=== PATIENT | female | born 1945 | race Caucasian/White ===

== ENCOUNTER → 2017-04-07 | Outpatient (CLI) | payer MEDICARE, BC | LOC: FS 10:39 | PROVIDERS: ATTEND Internal Medicine Hematology & Oncology | DX: Z08 Encounter for follow-up examination after completed treatment for malignant neoplasm (principal); Z85.3 Personal history of malignant neoplasm of breast; I10 Essential (primary) hypertension; Z79.899 Other long term (current) drug therapy | CPT/HCPCS: 99213 ==

== ENCOUNTER 2017-08-03 13:53 | Outpatient (RCR) | payer MEDICARE, BC | END 2017-11-01 | disposition home or self-care (01) | LOC: ONC 13:53 | PROVIDERS: ATTEND Internal Medicine Hematology & Oncology | DX: Z08 Encounter for follow-up examination after completed treatment for malignant neoplasm (principal); Z85.3 Personal history of malignant neoplasm of breast; I10 Essential (primary) hypertension; Z79.899 Other long term (current) drug therapy | CPT/HCPCS: 99213 ==

== ENCOUNTER → 2018-04-05 | Outpatient (CLI) | payer MEDICARE, BC | LOC: EDSTATUS 11-02 12:27 → ONC 10:17 | PROVIDERS: ATTEND Internal Medicine Hematology & Oncology | DX: Z08 Encounter for follow-up examination after completed treatment for malignant neoplasm (principal); Z85.3 Personal history of malignant neoplasm of breast; I10 Essential (primary) hypertension; E03.9 Hypothyroidism, unspecified; G47.33 Obstructive sleep apnea (adult) (pediatric); Z15.01 Genetic susceptibility to malignant neoplasm of breast; Z85.40 Personal history of malignant neoplasm of unspecified female genital organ; Z80.3 Family history of malignant neoplasm of breast; Z80.0 Family history of malignant neoplasm of digestive organs; Z79.899 Other long term (current) drug therapy; Z92.21 Personal history of antineoplastic chemotherapy; Z92.3 Personal history of irradiation | CPT/HCPCS: 99213 ==

== ENCOUNTER 2019-03-09 13:14 | Emergency (ER) | payer MEDICARE, BC ==
[~2019-03-09] VITALS: Ht 172.7 cm; Wt 72.1 kg
[2019-03-09] MEDS ORDERED: LEVO112T55 (13:23)
[2019-03-09] MEDS ORDERED: FURO20TA4 (13:23)
[2019-03-09] MEDS ORDERED: LOSA100T57 (13:23)
[2019-03-09] MEDS ORDERED: LOSARTAN (13:23)
[2019-03-09 13:40] VITALS: BP_SYST 102; BP_SYST 105; BP_SYST 113; BP_DIAS 50; BP_DIAS 54
[2019-03-09 13:49] LABS: BASOPHILS % (AUTO) 0 % (0-10); EOSINOPHILS % (AUTO) 0 % (0-10); HEMATOCRIT 41 % (35-52); LYMPHOCYTES # (AUTO) 1.2 X 10^3 (1.0-4.0); LYMPHOCYTES % (AUTO) 8 % (12-44); MEAN CORPUSCULAR HEMOGLOBIN 29 PG (25-34); MEAN CORPUSCULAR HGB CONC 32 G/DL (32-36); MEAN CORPUSCULAR VOLUME 90 FL (80-99); MEAN PLATELET VOLUME 10.1 FL (7.4-10.4); MONOCYTES # (AUTO) 0.8 X 10^3 (0.0-1.0); MONOCYTES % (AUTO) 5 % (0-12); NEUTROPHILS # (AUTO) 13.6 X 10^3 (1.8-7.8); NEUTROPHILS % (AUTO) 86 % (42-75); PLATELET COUNT 327 10^3/uL (130-400); RED CELL DISTRIBUTION WIDTH 14.7 % (10.0-14.5); WHITE BLOOD COUNT 15.8 10^3/uL (4.3-11.0)
[2019-03-09 13:53] LABS: BILIRUBIN,URINE NEGATIVE (NEGATIVE); CLARITY,URINE SLT CLOUDY; COLOR,URINE YELLOW; GLUCOSE, URINE (UA) 1+ (NEGATIVE); KETONES,URINE NEGATIVE (NEGATIVE); LEUKOCYTE ESTERASE ,URINE NEGATIVE (NEGATIVE); NITRITE,URINE NEGATIVE (NEGATIVE); PROTEIN,URINE TRACE (NEGATIVE); UROBILINOGEN,URINE 0.2 MG/DL (NORMAL)
[2019-03-09 14:04] LABS: BILIRUBIN,TOTAL 0.5 MG/DL (0.1-1.0); CALCIUM 9.6 MG/DL (8.5-10.1); CREATININE SERUM 1.27 MG/DL (0.60-1.30); MAGNESIUM 2.3 MG/DL (1.8-2.4); POTASSIUM 4.1 MMOL/L (3.6-5.0)
[2019-03-09 14:05] LABS: ALBUMIN 4.2 GM/DL (3.2-4.5); TOTAL PROTEIN 7.4 GM/DL (6.4-8.2)
[2019-03-09 14:17] LABS: BAND NEUTROPHILS 2 %; BASOPHILS % (MANUAL) 0 %; EOSINOPHILS % (MANUAL) 0 %; LYMPHOCYTES % (MANUAL) 11 %; MONOCYTES % (MANUAL) 2 %; NEUTROPHILS % (MANUAL) 85 %
[2019-03-09] MEDS ORDERED: NS IV 1000 ML 1,000 ML ONE (14:26)
[2019-03-09] MEDS ORDERED: NS IV 1000 ML 1,000 ML IV SCH (14:30)
--- NOTE | 2019-03-09 14:43 | ED General ---
General Chief Complaint: Dizziness/Syncope Stated Complaint: NEAR SYNCOPE Nursing Triage Note: Patient brought in via EMS ([facility]) with c/o near syncope. Patient states that she was driving home from [place] when her arms/hand muscles started to tense up and she felt as though she was going to faint. She went to see her PCP in [place] and was sent here to the ED for further evaluation. Patient also reports muscle spasms in her back. Nursing Sepsis Screen: No Definite Risk Source of Information: Patient History of Present Illness Date Seen by Provider: Mar 09, 2019 Time Seen by Provider: 14:37 Initial Comments Patient is a 73-year-old female presents with B hand cramping while driving, accompanied by dizziness and near syncope. Patient was able to kiln puller denies syncopal episodes. Denies chest pain palpitations, headache, blurred vision. Patient states she started a diuretic 3 days ago her blood pressure control. She was seen at her PCPs office and referred to the ED for additional evaluation. Patient symptoms have fully resolved prior to ED arrival. No other acute symptoms or complaints. Timing/Duration: 1-3 Hours Severity: Mild Associated Systoms: Denies Symptoms Allergies and Home Medications Allergies Coded Allergies: No Known Drug Allergies (Unverified , 03/09/19) Patient Home Medication List Home Medication List Reviewed: Yes Review of Systems Review of Systems Constitutional: see HPI Respiratory: see HPI Cardiovascular: see HPI Genitourinary: see HPI Musculoskeletal: see HPI Skin: see HPI Psychiatric/Neurological: See HPI Hematologic/Lymphatic: See HPI Immunological/Allergic: see HPI Past Albetla-Spyfca-Yanose Hx Patient Social History Alcohol Use: Denies Use Recreational Drug Use: No Smoking Status: Never a Smoker 2nd Hand Smoke Exposure: No Recent Foreign Travel: No Contact w/Someone Who Travel: No Recent Infectious Disease Expo: No Recent Hopitalizations: No Physical Abuse: No Sexual Abuse: No Mistreated: No Fear: No Seasonal Allergies Seasonal Allergies: No Past Medical History Surgeries: Yes (L mastectomy) Hysterectomy Respiratory: No Hypertension Neurological: 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 oz. 72.736951rz; BMI Method:Stated General Appearance: No Apparent Distress, WD/WN, Anxious Eyes: Bilateral Eye Normal Inspection, Bilateral Eye PERRL, Bilateral Eye EOMI, Bilateral Eye Abnormal EOM, Bilateral Eye Abnormal Pupil HEENT: PERRL/EOMI, TMs Normal, Pharynx Normal, Moist Mucous Membranes Neck: Full Range of Motion, Normal Inspection, Supple Respiratory: Chest Non Tender, Lungs Clear, Normal Breath Sounds Cardiovascular: Regular Rate, Rhythm Back: Normal Inspection Neurologic/Psychiatric: Alert, Oriented x3, No Motor/Sensory Deficits, pharmacy care coordinator II- XII Norm as Tested Skin: Normal Color Focused Exam Sepsis Stage: Ruled Out Progress/Results/Core Measures Suspected Sepsis Recent Fever Within 48 Hours: No Infection Criteria Present: None New/Unexplained Altered Menta: No Sepsis Screen: No Definite Risk SIRS Temperature:97.6 Pulse: 81 Respiratory Rate: 21 Laboratory Tests 03/09/19 13:25: White Blood Count 15.8H Blood Pressure 121 /61 Mean: 81 Laboratory Tests 03/09/19 13:25: Creatinine 1.27, Platelet Count 327, Total Bilirubin 0.5 Results/Orders Lab Results Laboratory Tests Test 03/09/19 13:25 03/09/19 13:35 Range/Units White Blood Count 15.8 H 4.3-11.0 10^3/uL Red Blood Count 4.49 4.35-5.85 10^6/uL Hemoglobin 13.0 11.5-16.0 G/DL Hematocrit 41 35-52 % Mean Corpuscular Volume 90 80-99 FL Mean Corpuscular Hemoglobin 29 25-34 PG Mean Corpuscular Hemoglobin Concent 32 32-36 G/DL Red Cell Distribution Width 14.7 H 10.0-14.5 % Platelet Count 327 130-400 10^3/uL Mean Platelet Volume 10.1 7.4-10.4 FL Neutrophils (%) (Auto) 86 H 42-75 % Lymphocytes (%) (Auto) 8 L 12-44 % Monocytes (%) (Auto) 5 0-12 % Eosinophils (%) (Auto) 0 0-10 % Basophils (%) (Auto) 0 0-10 % Neutrophils # (Auto) 13.6 H 1.8-7.8 X 10^3 Lymphocytes # (Auto) 1.2 1.0-4.0 X 10^3 Monocytes # (Auto) 0.8 0.0-1.0 X 10^3 Eosinophils # (Auto) 0.0 0.0-0.3 10^3/uL Basophils # (Auto) 0.0 0.0-0.1 10^3/uL Neutrophils % (Manual) 85 % Lymphocytes % (Manual) 11 % Monocytes % (Manual) 2 % Eosinophils % (Manual) 0 % Basophils % (Manual) 0 % Band Neutrophils 2 % Sodium Level 140 135-145 MMOL/L Potassium Level 4.1 3.6-5.0 MMOL/L Chloride Level 99 98-107 MMOL/L Carbon Dioxide Level 28 21-32 MMOL/L Anion Gap 13 5-14 MMOL/L Blood Urea Nitrogen 22 H 7-18 MG/DL Creatinine 1.27 0.60-1.30 MG/DL Estimat Glomerular Filtration Rate 41 BUN/Creatinine Ratio 17 Glucose Level 214 H 70-105 MG/DL Calcium Level 9.6 8.5-10.1 MG/DL Corrected Calcium 9.4 8.5-10.1 MG/DL Magnesium Level 2.3 1.8-2.4 MG/DL Total Bilirubin 0.5 0.1-1.0 MG/DL Aspartate Amino Transf (AST/SGOT) 11 5-34 U/L Alanine Aminotransferase (ALT/SGPT) 11 0-55 U/L Alkaline Phosphatase 91 40-136 U/L Total Protein 7.4 6.4-8.2 GM/DL Albumin 4.2 3.2-4.5 GM/DL Urine Color YELLOW Urine Clarity SLT CLOUDY Urine pH 6.0 5-9 Urine Specific [place] 1.020 1.016-1.022 Urine Protein TRACE NEGATIVE Urine Glucose (UA) 1+ H NEGATIVE Urine Ketones NEGATIVE NEGATIVE Urine Nitrite NEGATIVE NEGATIVE Urine Bilirubin NEGATIVE NEGATIVE Urine Urobilinogen 0.2 NORMAL MG/DL Urine Leukocyte Esterase NEGATIVE NEGATIVE Urine RBC (Auto) TRACE H NEGATIVE My Orders Orders - MARIANNE SIMMONS DO Cbc With Automated Diff (03/09/19 13:16) Comprehensive Metabolic Panel (03/09/19 13:16) Thyroid Stimulating Hormone (7/10/19 13:16) Ekg Tracing (03/09/19 13:16) Urinalysis Dipstick Only (03/09/19 13:16) Orthostatic Vital Signs (Adult (03/09/19 13:16) Magnesium (03/09/19 13:16) Manual Differential (03/09/19 13:25) Ns Iv 1000 Ml (Sodium Chloride 0.9%) (03/09/19 14:30) Vital Signs/I&O 03/09/19 13:14 Temp 97.6 Pulse 81 Resp 21 B/P (MAP) 121/61 (81) Pulse Ox 100 O2 Delivery Room Air Capillary Refill : Less Than 3 Seconds Blood Pressure Mean: 81 Departure Communication (Admissions) Patient noted to have mild leukocytosis. She has recently completed a dose of steroids. No arrhythmia on monitor. Lab work reveals mild dehydration possibly contributing to cramps along with heat. IV fluids given. EKG unremarkable. Patient remains asymptomatic while in the emergency department. Recommend PCP follow-up. Return precautions reviewed. Impression Primary Impression: Dizziness Additional Impressions: Dehydration Near syncope Disposition: 01 HOME, SELF-CARE Condition: Improved Departure-Patient Inst. Referrals: RONAK JAIME MD (PCP/Family) Primary Care Physician Patient Instructions: Dehydration, Adult (DC), Near Fainting (DC) Add. Discharge Instructions: You were evaluated in the emergency department for dizziness, headache cramps and near fainting episode. Although the exact cause your symptoms not been determined, lab work is suggestive dehydration which may have contributed to her symptoms. Please discontinue Lasix until you follow up with your PCP. Return to the ED if new or worsening symptoms. All discharge instructions reviewed with patient and/or family. Voiced understanding. MARIANNE SIMMONS DO Mar 09, 2019 14:42
[2019-03-09 15:10] VITALS: BP 99/46
--- OUTSIDE RECORDS SUMMARY | 2019-03-09 16:40 | XMS REPORT | Continuity of Care Document ---
Demographics x Preferred Language Unknown Marital Status Unknown Episcopal Affiliation Unknown Race Unknown Ethnic Group Unknown Author Organization Unknown Address Unknown Allergies There is no data. Medications There is no data. Problems Date Dx Coded Attending Type Code Diagnosis Diagnosed By 04/18/2015 PAOLO, BOBAN N Ot 401.9 04/18/2015 PAOLO, BOBAN N Ot V10.3 04/18/2015 PAOLO, BOBAN N Ot V58.69 04/18/2015 PAOLO, BOBAN N Ot V67.1 04/18/2015 PAOLO, BOBAN N Ot V67.2 05/01/2015 PAOLO, BOBAN N Ot 401.9 05/01/2015 PAOLO, BOBAN N Ot V10.3 05/01/2015 PAOLO, BOBAN N Ot V58.69 05/01/2015 PAOLO, BOBAN N Ot V67.1 05/01/2015 POALO, BOBAN N Ot V67.2 05/10/2015 PAOLO, BOBAN N Ot 401.9 05/10/2015 PAOLO, BOBAN N Ot V10.3 05/10/2015 PAOLO, BOBAN N Ot V58.69 05/10/2015 PAOLO, BOBAN N Ot V67.1 05/10/2015 PAOLO, BOBAN N Ot V67.2 04/10/2016 PAOLO, BOBAN N Ot I10 ESSENTIAL (PRIMARY) HYPERTENSION 04/10/2016 PAOLO, BOBAN N Ot Z08 ENCNTR FOR FOLLOW-UP EXAM AFTER TRTMT FO 04/10/2016 PAOLO, BOBAN N Ot Z79.899 OTHER RETIREMENT (CURRENT) DRUG THERAPY 04/10/2016 PAOLO, BOBAN N Ot Z85.3 PERSONAL HISTORY OF MALIGNANT NEOPLASM O 04/29/2016 PAOLO, BOBAN N Ot I10 ESSENTIAL (PRIMARY) HYPERTENSION 04/29/2016 PAOLO, BOBAN N Ot Z08 ENCNTR FOR FOLLOW-UP EXAM AFTER TRTMT FO 04/29/2016 PAOLO, BOBAN N Ot 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 04/29/2016 PAOLO, BOBAN N Ot Z85.3 PERSONAL HISTORY OF MALIGNANT NEOPLASM O 05/02/2016 NICK BOONE N Ot I10 ESSENTIAL (PRIMARY) HYPERTENSION 05/02/2016 PAOLO NICK N Ot Z08 ENCNTR FOR FOLLOW-UP EXAM AFTER TRTMT FO 05/02/2016 PAOLO CIARAJIMMY N Ot 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 05/02/2016 PAOLO, NICK N Ot Z85.3 PERSONAL HISTORY OF MALIGNANT NEOPLASM O 04/29/2017 PAOLO, CIARAJIMMY N Ot I10 ESSENTIAL (PRIMARY) HYPERTENSION 04/29/2017 PAOLO NICK N Ot Z08 ENCNTR FOR FOLLOW-UP EXAM AFTER TRTMT FO 04/29/2017 PAOLONICK N Ot 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 04/29/2017 PAOLONICK N Ot Z85.3 PERSONAL HISTORY OF MALIGNANT NEOPLASM O 05/05/2017 PAOLO, NICK N Ot I10 ESSENTIAL (PRIMARY) HYPERTENSION 05/05/2017 NICK BOONE N Ot Z08 ENCNTR FOR FOLLOW-UP EXAM AFTER TRTMT FO 05/05/2017 PAOLONICK N Ot Z79.899 OTHER RETIREMENT (CURRENT) DRUG THERAPY 05/05/2017 PAOLONICK N Ot Z85.3 PERSONAL HISTORY OF MALIGNANT NEOPLASM O 08/04/2017 PAOLO CIARAJIMMY N Ot I10 ESSENTIAL (PRIMARY) HYPERTENSION 08/04/2017 PAOLONICK N Ot Z08 ENCNTR FOR FOLLOW-UP EXAM AFTER TRTMT FO 08/04/2017 NICK BOONE N Ot 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 08/04/2017 PAOLONICK N Ot Z85.3 PERSONAL HISTORY OF MALIGNANT NEOPLASM O 09/22/2017 PAOLO, CIARAAN N Ot I10 ESSENTIAL (PRIMARY) HYPERTENSION 09/22/2017 NIKC BOONE N Ot Z08 ENCNTR FOR FOLLOW-UP EXAM AFTER TRTMT FO 09/22/2017 PAOLONICK N Ot Z79.899 OTHER RETIREMENT (CURRENT) DRUG THERAPY 09/22/2017 PAOLONICK N Ot Z85.3 PERSONAL HISTORY OF MALIGNANT NEOPLASM O 09/30/2017 PAOLO BOBAN N Ot I10 ESSENTIAL (PRIMARY) HYPERTENSION 09/30/2017 PAOLO NICK N Ot Z08 ENCNTR FOR FOLLOW-UP EXAM AFTER TRTMT FO 09/30/2017 PAOLO NICK N Ot Z79.899 OTHER RETIREMENT (CURRENT) DRUG THERAPY 09/30/2017 PAOLO NICK N Ot Z85.3 PERSONAL HISTORY OF MALIGNANT NEOPLASM O 11/01/2017 PAOLO BOBAN N Ot I10 ESSENTIAL (PRIMARY) HYPERTENSION 11/01/2017 PAOLONICK N Ot Z08 ENCNTR FOR FOLLOW-UP EXAM AFTER TRTMT FO 11/01/2017 PAOLO NICK N Ot 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 11/01/2017 PAOLOCIARAAN N Ot Z85.3 PERSONAL HISTORY OF MALIGNANT NEOPLASM O 04/27/2018 PAOLONICK N Ot E03.9 HYPOTHYROIDISM, UNSPECIFIED 04/27/2018 PAOLONICK N Ot G47.33 OBSTRUCTIVE SLEEP APNEA (ADULT) (PEDIATR 04/27/2018 PAOLO BOBAN N Ot I10 ESSENTIAL (PRIMARY) HYPERTENSION 04/27/2018 PAOLONICK N Ot Z08 ENCNTR FOR FOLLOW-UP EXAM AFTER TRTMT FO 04/27/2018 PAOLO NICK N Ot Z15.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 MALIGNANT NEOP 04/27/2018 PAOLONICK N Ot 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 04/27/2018 PAOLONICK N Ot Z80.0 FAMILY HISTORY OF MALIGNANT NEOPLASM OF 04/27/2018 PAOLONICK N Ot Z80.3 FAMILY HISTORY OF MALIGNANT NEOPLASM OF 04/27/2018 NICK BOONE N Ot Z85.3 PERSONAL HISTORY OF MALIGNANT NEOPLASM O 04/27/2018 NICK BOONE N Ot Z85.40 PRSNL HISTORY OF MALIG NEOPLM OF UNSP FE 04/27/2018 NICK BOONE N Ot Z92.21 PERSONAL HISTORY OF ANTINEOPLASTIC CHEMO 04/27/2018 NICK BOONE N Ot Z92.3 PERSONAL HISTORY OF IRRADIATION 05/05/2018 NICK BOONE N Ot E03.9 HYPOTHYROIDISM, UNSPECIFIED 05/05/2018 CIARA BOONEAN N Ot G47.33 OBSTRUCTIVE SLEEP APNEA (ADULT) (PEDIATR 05/05/2018 PAOLO BOBAN N Ot I10 ESSENTIAL (PRIMARY) HYPERTENSION 05/05/2018 NICK BOONE Ot Z08 ENCNTR FOR FOLLOW-UP EXAM AFTER TRTMT FO 05/05/2018 NICK BOONE Ot Z15.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 Results Test Result Range CMP - 03/01/19 11:17 GLUCOSE 91 mg/dL 65-99 UREA NITROGEN (BUN) 16 mg/dL 7-25 CREATININE 0.82 mg/dL 0.60-0.93 eGFR NON-AFR. UKRAINIAN 72 mL/min/1.73m2 > OR=60 eGFR 83 mL/min/1.73m2 > OR=60 BUN/CREATININE RATIO NOT APPLICABLE (calc) 6-22 SODIUM 140 mmol/L 135-146 POTASSIUM 4.5 mmol/L 3.5-5.3 CHLORIDE 105 mmol/L 98-110 CARBON DIOXIDE 26 mmol/L 20-32 CALCIUM 9.5 mg/dL 8.6-10.4 PROTEIN, TOTAL 7.0 g/dL 6.1-8.1 ALBUMIN 4.2 g/dL 3.6-5.1 GLOBULIN 2.8 g/dL (calc) 1.9-3.7 ALBUMIN/GLOBULIN RATIO 1.5 (calc) 1.0-2.5 BILIRUBIN, TOTAL 0.6 mg/dL 0.2-1.2 ALKALINE PHOSPHATASE 91 U/L 33-130 AST 12 U/L 10-35 ALT 10 U/L 6-29 CBC w/MANUAL DIFF - 03/01/19 11:17 WHITE BLOOD CELL COUNT 6.6 Thousand/uL 3.8-10.8 RED BLOOD CELL COUNT 4.19 Million/uL 3.80-5.10 HEMOGLOBIN 12.0 g/dL 11.7-15.5 HEMATOCRIT 37.6 % 35.0-45.0 MCV 89.7 fL 80.0-100.0 MCH 28.6 pg 27.0-33.0 MCHC 31.9 g/dL 32.0-36.0 RDW 13.8 % 11.0-15.0 PLATELET COUNT 260 Thousand/uL 140-400 MPV 11.3 fL 7.5-12.5 ABSOLUTE NEUTROPHILS 4224 cells/uL 1266-5037 ABSOLUTE MONOCYTES 594 cells/uL 200-950 ABSOLUTE EOSINOPHILS 198 cells/uL 15-500 ABSOLUTE BASOPHILS 0 cells/uL 0-200 NEUTROPHILS 64.0 % NRG LYMPHOCYTES 22.0 % NRG MONOCYTES 9.0 % NRG EOSINOPHILS 3.0 % NRG BASOPHILS 0 % NRG ABSOLUTE BAND NEUTROPHILS 132 cells/uL 0-750 ABSOLUTE LYMPHOCYTES 1452 cells/uL 850-3900 BAND NEUTROPHILS 2.0 % NRG PLATELET ESTIMATION ADEQUATE ADEQUATE CBC MORPHOLOGY NORMAL ESR/SED RATE - 03/01/19 11:17 SED RATE BY MODIFIED WESTERGREN 17 mm/h < OR=30 Complete blood count (CBC) with automated white blood cell (WBC) differential - 03/09/19 13:25 Blood leukocytes automated count (number/volume) 15.8 10*3/uL 4.3-11.0 Blood erythrocytes automated count (number/volume) 4.49 10*6/uL 4.35-5.85 Venous blood hemoglobin measurement (mass/volume) 13.0 g/dL 11.5-16.0 Blood hematocrit (volume fraction) 41 % 35-52 Automated erythrocyte mean corpuscular volume 90 [foz_us] 80-99 Automated erythrocyte mean corpuscular hemoglobin (mass per erythrocyte) 29 pg 25-34 Automated erythrocyte mean corpuscular hemoglobin concentration measurement (mass/volume) 32 g/dL 32-36 Automated erythrocyte distribution width ratio 14.7 % 10.0- 14.5 Automated blood platelet count (count/volume) 327 10*3/uL 130-400 Automated blood platelet mean volume measurement 10.1 [foz_us] 7.4-10.4 Automated blood neutrophils/100 leukocytes 86 % 42-75 Automated blood lymphocytes/100 leukocytes 8 % 12-44 Blood monocytes/100 leukocytes 5 % 0-12 Automated blood eosinophils/100 leukocytes 0 % 0-10 Automated blood basophils/100 leukocytes 0 % 0-10 Blood neutrophils automated count (number/volume) 13.6 10*3 1.8-7.8 Blood lymphocytes automated count (number/volume) 1.2 10*3 1.0-4.0 Blood monocytes automated count (number/volume) 0.8 10*3 0.0- 1.0 Automated eosinophil count 0.0 10*3/uL 0.0-0.3 Automated blood basophil count (count/volume) 0.0 10*3/uL 0.0-0.1 Comprehensive metabolic panel - 03/09/19 13:25 Serum or plasma sodium measurement (moles/volume) 140 mmol/L 135-145 Serum or plasma potassium measurement (moles/volume) 4.1 mmol/L 3.6-5.0 Serum or plasma chloride measurement (moles/volume) 99 mmol/L 98-107 Carbon dioxide 28 mmol/L 21-32 Serum or plasma anion gap determination (moles/volume) 13 mmol/L 5-14 Serum or plasma urea nitrogen measurement (mass/volume) 22 mg/dL 7-18 Serum or plasma creatinine measurement (mass/volume) 1.27 mg/dL 0.60-1.30 Serum or plasma urea nitrogen/creatinine mass ratio 17 NRG Serum or plasma creatinine measurement with calculation of estimated glomerular filtration rate 41 NRG Serum or plasma glucose measurement (mass/volume) 214 mg/dL 70-105 Serum or plasma calcium measurement (mass/volume) 9.6 mg/dL 8.5-10.1 Serum or plasma total bilirubin measurement (mass/volume) 0.5 mg/dL 0.1-1.0 Serum or plasma alkaline phosphatase measurement (enzymatic activity/volume) 91 U/L 40-136 Serum or plasma aspartate aminotransferase measurement (enzymatic activity/volume) 11 U/L 5-34 Serum or plasma alanine aminotransferase measurement (enzymatic activity/volume) 11 U/L 0-55 Serum or plasma protein measurement (mass/volume) 7.4 g/dL 6.4-8.2 Serum or plasma albumin measurement (mass/volume) 4.2 g/dL 3.2-4.5 CALCIUM CORRECTED 9.4 mg/dL 8.5-10.1 Magnesium - 03/09/19 13:25 Magnesium 2.3 mg/dL 1.8-2.4 Manual absolute plasma cell count - 03/09/19 13:25 Blood monocytes/100 leukocytes 2 % NRG Manual blood segmented neutrophils/100 leukocytes 85 % NRG Blood band neutrophils/100 leukocytes 2 % NRG Manual blood lymphocytes/100 leukocytes 11 % NRG Manual eosinophils/100 leukocytes in nose 0 % NRG Manual blood basophils/100 leukocytes 0 % NRG Automated dipstick urinalysis - 03/09/19 13:35 Urine color determination YELLOW NRG Urine clarity determination SLT CLOUDY NRG Urine pH measurement by test strip 6.0 5-9 Specific gravity of urine by test strip 1.020 1.016-1.022 Urine protein assay by test strip, semi-quantitative TRACE NEGATIVE Urine glucose detection by automated test strip 1+ NEGATIVE Erythrocytes detection in urine sediment by light microscopy TRACE NEGATIVE Urine ketones detection by automated test strip NEGATIVE NEGATIVE Urine nitrite detection by test strip NEGATIVE NEGATIVE Urine total bilirubin detection by test strip NEGATIVE NEGATIVE Urine urobilinogen measurement by automated test strip (mass/volume) 0.2 mg/dL NORMAL Urine leukocyte esterase detection by dipstick NEGATIVE NEGATIVE Encounters ACCT No. Visit Date/Time Discharge Status Pt. Type Provider Facility Loc./Unit Complaint [id number] 03/01/2019 11:00:00 03/01/2019 23:59:59 CLS Outpatient [facility] [id number] 03/01/2019 11:00:00 Document Registration [id number] 11/02/2017 00:13:00 11/02/2017 23:59:59 CLS Outpatient PAOLO NICK Jesus [facility] ONC [id number] 08/03/2017 13:53:00 11/01/2017 00:01:00 DIS Outpatient PAOLO CIARAJIMMY Lee [facility] ONC [id number] 04/07/2017 10:39:00 04/07/2017 23:59:59 CLS Outpatient PAOLONICK MICHELLE [facility] FS [id number] 04/08/2016 11:27:00 04/08/2016 23:59:59 CLS Outpatient PAOLONICK MICHELLE [facility] FS [id number] 04/10/2015 10:20:00 04/10/2015 23:59:59 CLS Outpatient NICK BOONE [facility] [id number] 03/28/2014 14:34:00 03/28/2014 23:59:59 CLS Outpatient [id number] 04/22/2013 21:00:00 04/22/2013 23:59:59 CLS Outpatient [id number] 03/29/2013 14:55:00 03/29/2013 23:59:59 CLS Outpatient [id number] 03/09/2019 13:50:00 Document Registration
--- OUTSIDE RECORDS SUMMARY | 2019-03-09 16:40 | XMS REPORT | Clinical Summary ---
Author Author [facility] Organization [facility] Address Unknown Phone Unavailable Care Team Providers Care Clinical Technologist Name Role Phone Luis Roberts MD PCP Allergies Not on File Current Medications Not on file Active Problems Not on file Social History Tobacco Use Types Packs/Day Years Used Date Never Assessed Sex Assigned at Date Recorded Not on file Last Filed Vital Signs Not on file Plan of Treatment Health Maintenance Due Date Last Done Comments Hepatitis C Screen 1945 Medicare Annual Wellness 1945 Td # 1945 Colorectal Screening via 1997 Colonoscopy Zoster Vaccine# (1 of 2) 1997 Depression Screening 2012 PHQ-9 # Fall Risk Assessment # 2012 Pneumococcal Immunization 2012 65+ (1 of 2 - PCV13) Osteoporosis Screening 03/28/2016 03/28/2011 Influenza Vaccine (#1) 2019 Mammogram Screening 04/22/2020 04/22/2018, 04/22/2017, 04/22/2016, Additional history exists Results Not on filefrom Last 3 Months
== END 2019-03-09 15:10 | disposition home or self-care (01) ==
LOC: EDUNIT# 13:14 → ER FS 13:15
DX: R55 Syncope and collapse (principal); R42 Dizziness and giddiness; E86.0 Dehydration; I10 Essential (primary) hypertension; E03.9 Hypothyroidism, unspecified; Z85.3 Personal history of malignant neoplasm of breast; Z85.42 Personal history of malignant neoplasm of other parts of uterus; Z90.710 Acquired absence of both cervix and uterus; Z90.12 Acquired absence of left breast and nipple
CPT/HCPCS: 36415; 80053; 81002; 83735; 84443; 85007; 85027; 93005; 96360

== ENCOUNTER → 2019-04-13 | Outpatient (CLI) | payer MEDICARE, BC ==
[~2019-04-13] MED LIST: FURO20TA4; LEVO112T55; LOSA100T57; LOSARTAN
[2019-04-13 11:10] LABS: BASOPHILS % (AUTO) 1 % (0-10); EOSINOPHILS # (AUTO) 0.1 10^3/uL (0.0-0.3); EOSINOPHILS % (AUTO) 2 % (0-10); HEMATOCRIT 38 % (35-52); HEMOGLOBIN 12.1 G/DL (11.5-16.0); LYMPHOCYTES # (AUTO) 1.8 X 10^3 (1.0-4.0); LYMPHOCYTES % (AUTO) 29 % (12-44); MEAN CORPUSCULAR HEMOGLOBIN 29 PG (25-34); MEAN CORPUSCULAR HGB CONC 32 G/DL (32-36); MEAN CORPUSCULAR VOLUME 91 FL (80-99); MEAN PLATELET VOLUME 10.5 FL (7.4-10.4); MONOCYTES # (AUTO) 0.5 X 10^3 (0.0-1.0); MONOCYTES % (AUTO) 8 % (0-12); NEUTROPHILS # (AUTO) 3.8 X 10^3 (1.8-7.8); NEUTROPHILS % (AUTO) 61 % (42-75); PLATELET COUNT 244 10^3/uL (130-400); RED CELL DISTRIBUTION WIDTH 14.3 % (10.0-14.5); WHITE BLOOD COUNT 6.2 10^3/uL (4.3-11.0)
[2019-04-13 11:39] LABS: ALANINE AMINOTRANSFERASE 13 U/L (0-55); ALBUMIN 4.1 GM/DL (3.2-4.5); ALKALINE PHOSPHATASE 95 U/L (40-136); BILIRUBIN,TOTAL 0.6 MG/DL (0.1-1.0); BUN/CREATININE RATIO 19; CALCIUM 9.5 MG/DL (8.5-10.1); CARBON DIOXIDE 25 MMOL/L (21-32); CHLORIDE 106 MMOL/L (98-107); CREATININE SERUM 0.85 MG/DL (0.60-1.30); GFR ESTIMATED > 60; GLUCOSE 99 MG/DL (70-105); POTASSIUM 4.5 MMOL/L (3.6-5.0); SODIUM 140 MMOL/L (135-145); TOTAL PROTEIN 7.4 GM/DL (6.4-8.2)
== END ==
LOC: ONC 10:53
PROVIDERS: ATTEND Internal Medicine Hematology & Oncology
DX: Z08 Encounter for follow-up examination after completed treatment for malignant neoplasm (principal); Z85.3 Personal history of malignant neoplasm of breast; I10 Essential (primary) hypertension; E03.9 Hypothyroidism, unspecified; G47.33 Obstructive sleep apnea (adult) (pediatric); Z15.01 Genetic susceptibility to malignant neoplasm of breast; Z85.40 Personal history of malignant neoplasm of unspecified female genital organ; Z80.3 Family history of malignant neoplasm of breast; Z80.0 Family history of malignant neoplasm of digestive organs; Z79.899 Other long term (current) drug therapy; Z92.21 Personal history of antineoplastic chemotherapy; Z92.3 Personal history of irradiation
CPT/HCPCS: 36415; 80053; 85025

== ENCOUNTER → 2020-04-30 | Outpatient (CLI) | payer MEDICARE, BC ==
[2020-04-30 14:50] LABS: BASOPHILS % (AUTO) 1 % (0-10); EOSINOPHILS # (AUTO) 0.2 10^3/uL (0.0-0.3); EOSINOPHILS % (AUTO) 4 % (0-10); HEMATOCRIT 39 % (35-52); HEMOGLOBIN 12.5 G/DL (11.5-16.0); LYMPHOCYTES # (AUTO) 2.1 X 10^3 (1.0-4.0); LYMPHOCYTES % (AUTO) 32 % (12-44); MEAN CORPUSCULAR HEMOGLOBIN 31 PG (25-34); MEAN CORPUSCULAR HGB CONC 33 G/DL (32-36); MEAN CORPUSCULAR VOLUME 94 FL (80-99); MEAN PLATELET VOLUME 10.3 FL (7.4-10.4); MONOCYTES # (AUTO) 0.6 X 10^3 (0.0-1.0); MONOCYTES % (AUTO) 9 % (0-12); NEUTROPHILS # (AUTO) 3.6 X 10^3 (1.8-7.8); NEUTROPHILS % (AUTO) 55 % (42-75); PLATELET COUNT 231 10^3/uL (130-400); RED CELL DISTRIBUTION WIDTH 13.5 % (10.0-14.5); WHITE BLOOD COUNT 6.6 10^3/uL (4.3-11.0)
[2020-04-30 15:10] LABS: ALANINE AMINOTRANSFERASE 15 U/L (0-55); ALBUMIN 4.1 GM/DL (3.2-4.5); ALKALINE PHOSPHATASE 92 U/L (40-136); BILIRUBIN,TOTAL 0.4 MG/DL (0.1-1.0); BUN/CREATININE RATIO 15; CALCIUM 9.4 MG/DL (8.5-10.1); CARBON DIOXIDE 24 MMOL/L (21-32); CHLORIDE 106 MMOL/L (98-107); GFR ESTIMATED > 60; GLUCOSE 89 MG/DL (70-105); POTASSIUM 4.1 MMOL/L (3.6-5.0); SODIUM 138 MMOL/L (135-145)
== END ==
LOC: ONC 14:38
PROVIDERS: ATTEND Internal Medicine Hematology & Oncology
DX: G47.33 Obstructive sleep apnea (adult) (pediatric) (principal); I10 Essential (primary) hypertension; E03.9 Hypothyroidism, unspecified; Z85.3 Personal history of malignant neoplasm of breast; Z90.12 Acquired absence of left breast and nipple; Z92.21 Personal history of antineoplastic chemotherapy; Z92.3 Personal history of irradiation; Z98.818 Other dental procedure status
CPT/HCPCS: 80053; 85025; G0463; 99213

== ENCOUNTER → 2021-04-30 | Outpatient (CLI) | payer MEDICARE, BC ==
[2021-04-30 13:24] LABS: BASOPHILS # (AUTO) 0.1 10^3/uL (0.0-0.1); BASOPHILS % (AUTO) 1 % (0-10); EOSINOPHILS # (AUTO) 0.2 10^3/uL (0.0-0.3); EOSINOPHILS % (AUTO) 2 % (0-10); HEMATOCRIT 39 % (35-52); HEMOGLOBIN 12.6 g/dL (11.5-16.0); LYMPHOCYTES # (AUTO) 2.3 10^3/uL (1.0-4.0); LYMPHOCYTES % (AUTO) 33 % (12-44); MEAN CORPUSCULAR HEMOGLOBIN 31 pg (25-34); MEAN CORPUSCULAR HGB CONC 32 g/dL (32-36); MEAN CORPUSCULAR VOLUME 96 fL (80-99); MEAN PLATELET VOLUME 10.2 fL (9.0-12.2); MONOCYTES # (AUTO) 0.5 10^3/uL (0.0-1.0); MONOCYTES % (AUTO) 7 % (0-12); NEUTROPHILS # (AUTO) 3.9 10^3/uL (1.8-7.8); NEUTROPHILS % (AUTO) 57 % (42-75); PLATELET COUNT 246 10^3/uL (130-400); WHITE BLOOD COUNT 6.9 10^3/uL (4.3-11.0)
[2021-04-30 13:43] LABS: ALBUMIN 3.9 GM/DL (3.2-4.5); BILIRUBIN,TOTAL 0.5 MG/DL (0.1-1.0); CALCIUM 9.6 MG/DL (8.5-10.1); CREATININE SERUM 0.84 MG/DL (0.60-1.30); POTASSIUM 3.8 MMOL/L (3.6-5.0); TOTAL PROTEIN 7.1 GM/DL (6.4-8.2)
== END ==
LOC: ONC 13:09
PROVIDERS: ATTEND Internal Medicine Hematology & Oncology
DX: C50.412 Malignant neoplasm of upper-outer quadrant of left female breast (principal); E03.9 Hypothyroidism, unspecified; G47.33 Obstructive sleep apnea (adult) (pediatric); I10 Essential (primary) hypertension; Z15.89 Genetic susceptibility to other disease; Z90.12 Acquired absence of left breast and nipple; Z92.21 Personal history of antineoplastic chemotherapy; Z92.3 Personal history of irradiation; Z98.890 Other specified postprocedural states; Z80.3 Family history of malignant neoplasm of breast
CPT/HCPCS: 80053; 85025; G0463; 99213

== ENCOUNTER 2022-04-13 10:42 | Emergency (ER) | payer MEDICARE, BC ==
[~2022-04-13] VITALS: Ht 172 cm; Wt 66.0 kg
[2022-04-13 10:51] VITALS: BP 138/78
[2022-04-13] MEDS ORDERED: TETANUS,DIPTH,PERTUSS P/F (BOOSTRIX) 0.5 ML VIAL IM ONE (11:00)
--- NOTE | 2022-04-13 11:00 | ED Lower Extremity ---
General Chief Complaint: Laceration Stated Complaint: LT ARM LAC Source: patient Exam Limitations: no limitations History of Present Illness Date Seen by Provider: Apr 13, 2022 Time Seen by Provider: 10:45 Initial Comments Patient is a 76-year-old right-handed female who presents with 37 laceration to left wrist. Patient cut herself with garden waldo prior to ED arrival. Date of last tetanus is unknown Onset: just prior to arrival Severity: mild Pain/Injury Location: left other (Left wrist laceration) Method of Injury: other Allergies and Home Medications Allergies Coded Allergies: No Known Drug Allergies (Unverified , 03/09/19) Patient Home Medication List Home Medication List Reviewed: No Furosemide (Furosemide) 20 Mg Tablet, (Reported) Entered as Reported by: BERNARDA DÍAZ on 03/09/19 1323 Levothyroxine Sodium (Levothyroxine Sodium) 112 Mcg Tablet, (Reported) Entered as Reported by: BERNARDA DÍAZ on 03/09/19 1323 Losartan Potassium (Losartan Potassium) 100 Mg Tablet, (Reported) Entered as Reported by: BERNARDA DÍAZ on 03/09/19 1323 Review of Systems Constitutional: no symptoms reported, see HPI Skin: other (Left wrist laceration) Past Szuwomj-Gixtkg-Liyufp Hx Patient Social History Tobacco Use?: No Use of E-Cig and/or Vaping dev: No Substance use?: No Alcohol Use?: No Pt feels they are or have been: Unable to obtain Seasonal Allergies Seasonal Allergies: No Past Medical History Surgeries: Yes (L mastectomy) Hysterectomy Respiratory: No Hypertension 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 oz. 72.371995gp; BMI Method:Stated General Appearance: WD/WN, no apparent distress Skin: other (3 cm full-thickness left flexor wrist laceration) Procedures/Interventions Wound Location: Upper Extremities (Left wrist) Other Wound Location Left wrist Wound Length (cm): 3 Wound's Depth, Shape: linear Wound Explored: clean Betadine Prep?: No Staple Repair: Stapler Skin Precise Progress Wound cleansed and closed Progress/Results/Core Measures Results/Orders My Orders Orders - MARIANNE SIMMONS DO Dipht,Pertuss(Acell),Tet Adult (Boostrix (04/13/22 11:00) Departure Communication (Admissions) Wound cleansed and closed and bandaged. Tetanus updated. Typical wound care instructions provided. Impression Primary Impression: Laceration of left wrist Disposition: 01 HOME, SELF-CARE Condition: Stable Departure-Patient Inst. Decision time for Depature: 10:59 Referrals: FRANK GANNON APRN (PCP) Primary Care Physician RONAK JAIME MD (Family) Primary Care Physician Patient Instructions: Laceration Repair With [facility] ED Add. Discharge Instructions: Please keep wound clean covered and dry. Follow-up with your PCP or return to the ED in 10 to 12 days for staple removal. Return sooner if signs of infection. All discharge instructions reviewed with patient and/or family. Voiced understanding. MARIANNE SIMMONS DO Apr 13, 2022 11:00
== END 2022-04-13 11:10 | disposition home or self-care (01) ==
LOC: EDUNIT# 10:42 → ER FS 10:43
DX: S61.512A Laceration without foreign body of left wrist, initial encounter (principal); W26.8XXA Contact with other sharp object(s), not elsewhere classified, initial encounter
CPT/HCPCS: 12031; 90715

== ENCOUNTER 2022-05-08 20:18 | Emergency (ER) | payer MEDICARE, BC ==
[~2022-05-08] VITALS: Ht 172 cm; Wt 68.0 kg
[2022-05-08 20:20] VITALS: BP 141/85
--- NOTE | 2022-05-08 20:23 | ED Upper Extremity ---
General Stated Complaint: L WRIST PAIN History of Present Illness Date Seen by Provider: May 08, 2022 Time Seen by Provider: 20:23 Initial Comments 76-year-old female presents with left wrist pain. Patient reports that just prior to arrival she fell in the bathroom on an outstretched arm. She has pain and swelling in the left wrist region with painful range of motion. She denies any other injury. Allergies and Home Medications Allergies Coded Allergies: No Known Drug Allergies (Unverified , 03/09/19) Patient Home Medication List Home Medication List Reviewed: Yes Furosemide (Furosemide) 20 Mg Tablet, (Reported) Entered as Reported by: BERNARDA DÍAZ on 03/09/19 1323 Levothyroxine Sodium (Levothyroxine Sodium) 112 Mcg Tablet, (Reported) Entered as Reported by: BERNARDA DÍAZ on 03/09/19 1323 Losartan Potassium (Losartan Potassium) 100 Mg Tablet, (Reported) Entered as Reported by: BERNARDA DÍAZ on 03/09/19 1323 Review of Systems Constitutional: no symptoms reported EENTM: no symptoms reported Respiratory: no symptoms reported Cardiovascular: no symptoms reported Gastrointestinal: no symptoms reported Genitourinary: no symptoms reported Musculoskeletal: see HPI Skin: see HPI Psychiatric/Neurological: No Symptoms Reported Past Xnotcnr-Qvdavq-Sqijav Hx Seasonal Allergies Seasonal Allergies: No Past Medical History Surgeries: Yes (L mastectomy) Hysterectomy Respiratory: No Hypertension 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 oz. 72.560536gx; 22.00 BMI Method:Stated General Appearance: mild distress HEENT: PERRL/EOMI Neck: full range of motion, supple Cardiovascular: normal peripheral pulses, regular rate, rhythm Respiratory: lungs clear, normal breath sounds Gastrointestinal: non tender, soft Shoulder: normal inspection Elbow/Forearm: normal inspection Wrist: Yes bone tenderness, Yes pain (Left wrist), Yes soft tissue tenderness, Yes swelling Neurologic/Tendon: normal sensation Neurologic/Psychiatric: alert, oriented x 3 Skin: normal color, warm/dry Progress/Results/Core Measures Results/Orders My Orders Orders - JI KAY DO Wrist 3 View Left (05/08/22 20:22) Fentanyl Inj (Sublimaze Injection) (05/08/22 20:28) Ortho Glass (05/08/22 20:49) Rx-Hydrocodone/Apap 5-325 Mg (Rx-Vicodin (05/08/22 21:00) Vital Signs/I&O 05/08/22 20:20 Temp 36.6 Pulse 92 Resp 18 B/P (MAP) 141/85 (103) Pulse Ox 97 O2 Delivery Room Air Progress Progress Note : Progress Note Patient with distal radius impacted fracture. Patient will be placed in a splint. She is to follow-up with Dr. Shrestha for further outpatient management. Patient stable and discharged home Diagnostic Imaging Diagonstic Imaging: Xray Plain Films/CT/US/NM/MRI: other Comments WRIST 3 VIEW LEFT CLINICAL INDICATION: Patient stated that she fell and cut herself and has left wrist pain. EXAM: X-ray of the left wrist, 3 views. COMPARISON: None. FINDINGS AND IMPRESSION: 1: There is a subtle impaction fracture involving the distal radial metaphysis with sclerosis seen in the region. There is no extension of the fracture to the articular region. There is subtle positive ulnar variance. 2: There is no other fracture involving the wrist, left hand or distal forearm seen. 3: There is soft tissue swelling about the wrist. Reviewed: Reviewed by Me, Reviewed/Discussed Departure Impression Primary Impression: Distal radius fracture, left Qualified Codes: S52.592A - Other fractures of lower end of left radius, initial encounter for closed fracture Disposition: HOME, SELF-CARE Condition: Stable Departure-Patient Inst. Referrals: FRANK GANNON APRN (PCP) Primary Care Physician RONAK JAIME MD (Family) Primary Care Physician Patient Instructions: Forearm and Wrist Fractures ED Add. Discharge Instructions: Please keep left arm elevated Please call Dr. Shrestha's office at [phone] in the morning to arrange for appointment for a follow-up in the next 7 to 10 days Ice to affected area for 24 hours for 20 minutes at a time 4-5 times a day Ibuprofen as needed for pain You may use the prescription Lortab as needed for breakthrough pain Scripts Hydrocodone/Acetaminophen (Hydrocodone-Acetamin 5-325 mg) 5 Mg-325 Mg Tablet 1 TAB PO Q8H PRN for PAIN-MODERATE (5-7), #10 TAB Prov: JI KAY DO 05/08/22 JI KAY DO May 08, 2022 20:23
[2022-05-08] MEDS ORDERED: fentaNYL INJ 100 MCG/2 ML AMP IM STA (20:28)
--- NOTE | 2022-05-08 20:41 | Diagnostic Imaging Report ---
CLINICAL INDICATION: Patient stated that she fell and cut herself and has left wrist pain. EXAM: X-ray of the left wrist, 3 views. COMPARISON: None. FINDINGS AND IMPRESSION: 1: There is a subtle impaction fracture involving the distal radial metaphysis with sclerosis seen in the region. There is no extension of the fracture to the articular region. There is subtle positive ulnar variance. 2: There is no other fracture involving the wrist, left hand or distal forearm seen. 3: There is soft tissue swelling about the wrist. Dictated by: Dictated on workstation # [id number]
[2022-05-08] MEDS ORDERED: ACHD5005 PO (20:58)
== END 2022-05-08 21:14 | disposition home or self-care (01) ==
LOC: EDUNIT# 20:18 → ER FS 20:19
DX: S59.202A Unspecified physeal fracture of lower end of radius, left arm, initial encounter for closed fracture (principal); W18.39XA Other fall on same level, initial encounter; Y92.89 Other specified places as the place of occurrence of the external cause
CPT/HCPCS: 29125; 73110

== ENCOUNTER → 2022-05-13 | Outpatient (CLI) | payer MEDICARE, BC ==
[~2022-05-13] MED LIST changes: +ACHD5005 PO
== END ==
LOC: ORTHO 13:26
PROVIDERS: ATTEND Orthopaedic Surgery
DX: M25.562 Pain in left knee (principal)
CPT/HCPCS: 99203

== ENCOUNTER → 2022-05-29 | Outpatient (CLI) | payer MEDICARE, BC ==
--- NOTE | 2022-05-29 08:51 | Diagnostic Imaging Report ---
INDICATION: Follow-up fracture. EXAMINATION: Left wrist 05/29/2022 COMPARISON: 05/08/2022. FINDINGS: 3 views of the wrist redemonstrate the fracture of the distal radius with early developing sclerosis/callus formation. Incomplete healing seen at this time. Alignment is maintained. No new fractures identified. No dislocations. IMPRESSION: 1. Early changes of healing about the known distal radial fracture. Dictated by: Dictated on workstation # [id number]
== END ==
LOC: ORTHO 08:26
PROVIDERS: ATTEND Orthopaedic Surgery
DX: Z47.89 Encounter for other orthopedic aftercare (principal); S52.502D Unspecified fracture of the lower end of left radius, subsequent encounter for closed fracture with routine healing; X58.XXXD Exposure to other specified factors, subsequent encounter
CPT/HCPCS: 73110; G0463; 99213

== ENCOUNTER → 2022-06-19 | Outpatient (CLI) | payer MEDICARE, BC ==
--- NOTE | 2022-06-19 14:21 | Diagnostic Imaging Report ---
WRIST, LEFT, 3 VIEWS OR MORE INDICATION: Fracture follow-up COMPARISON: 05/29/2022 TECHNIQUE: 3 views of the left wrist FINDINGS: Distal radial fracture maintains anatomic alignment. There is no depression of the articular surface. Progressive healing the interosseous bridging as the fracture line is no longer appreciated. Wrist remains normal in alignment. No ulnar styloid fracture. IMPRESSION: Distal radial fracture has near completely healed in anatomic alignment. Dictated by: Dictated on workstation # [id number]
== END ==
LOC: ORTHO 08:06
PROVIDERS: ATTEND Orthopaedic Surgery
DX: S52.502D Unspecified fracture of the lower end of left radius, subsequent encounter for closed fracture with routine healing (principal); I10 Essential (primary) hypertension; E03.9 Hypothyroidism, unspecified; X58.XXXD Exposure to other specified factors, subsequent encounter
CPT/HCPCS: 73110; G0463; 99213